=== PATIENT | male | born 1975 | race Caucasian/White ===

== ENCOUNTER 2017-10-09 14:18 | Emergency (ER) | payer OTHER ==
[~2017-10-09] VITALS: Ht 177.8 cm; Wt 94.0 kg
[~2017-10-09 14:18] MED LIST: CYCL-259 PO; HYDR-882 PO; METH2TAB PO; NONE PER PT; OMEP-110 PO; ONDA4TAB10 PO; OXYC5TAB3 PO; PANT20TA2 PO
[2017-10-09] MEDS ORDERED: KETOROLAC 30 MG/1 ML ONE (14:42)
[2017-10-09] MEDS ORDERED: KETOROLAC 30 MG/1 ML IM ONE (15:00)
[2017-10-09] MEDS ORDERED: HYDROcodone/APAP 5/325 TABLET ONE (15:15)
[2017-10-09 15:27] VITALS: BP 124/89
[2017-10-09] MEDS ORDERED: HYDROcodone/APAP 5/325 TABLET PO ONE (15:30)
== END 2017-10-09 15:29 | disposition home or self-care (01) ==
LOC: ED 15:15
DX: K08.89 Other specified disorders of teeth and supporting structures (principal); E11.9 Type 2 diabetes mellitus without complications
CPT/HCPCS: 96372; 99283; J1885